=== PATIENT | male | born 1965 | race Hispanic/Latino ===

== ENCOUNTER 2018-09-24 06:39 | Day surgery (SDC) | payer OTHER ==
[2018-09-24] MEDS ORDERED: NITROSTAT SL ONE (06:58)
[2018-09-24] MEDS ORDERED: LOPRESSOR IV ONE (06:58)
[2018-09-24] MEDS ORDERED: ATROPINE 0.1% (CARDIAC) ONE (08:19)
[2018-09-24 08:37] VITALS: BP 120/69
--- NOTE | 2018-09-24 10:08 | Cat Scan Report ---
LIMITED CT OF THE CHEST PER CT CORONARY ANGIOGRAPHY PROTOCOL: History: Abnormal stress test. Limited CT of the chest per CT coronary angiography protocol is submitted. The cardiac portion of the exam has been previously interpreted by the [employer]. The included portions of the lungs appear clear without evidence for suspicious nodule, mass or infiltrate. A 1 cm calcified granuloma is noted in the posterior segment of the right lower lobe. The included pleural spaces are clear. No mediastinal or hilar adenopathy is evident. Included upper abdomen and solid abdominal organs are grossly within normal limits. IMPRESSION: Calcified granuloma in the right lower lobe, otherwise, unremarkable limited CT of the lower chest.
--- NOTE | 2018-09-26 21:37 | CT Calcium Scoring Report ---
Coronary Calcium Score Date of service: 09/26/18 Procedure: High-resolution computed tomographic imaging of the chest was performed on09/24/18 with particular attention paid to the coronary arteries. Images from the examination were analyzed for the presence and extent of coronary artery calcification, using coronary calcium quantification software. The patient tolerated the procedure well and there were no complications. The results of the coronary calcification analysis are provided below. The patient scores are compared with published data related to scores for people of a similar age and the same gender. - Findings Left Anterior Descending Artery: 139.47 Left Circumflex(LCX): 68.35 Right Coronary Artery(RCA): 59.21 Total Agatson Score: 267.03 Percentile Ranking: >75 Findings: Cardiac CTA Indication:chest pain Informed consent obtained Procedure: The patient was brought to the cardiac ct laboratory at [facility] in stable condition after a 4 hour fast. Heart rate was regulated by beta blockade. Sublingual ngt was administered. A coronary calcium score was performed via the Agatston method. Left ventricular function was assessed by the threshold based volumetric segmentation approach. A separate radiology assessment of the non cardiac structures in the field of view will be provided. Superior vena cava in the field of view appears normal Inferior vena cava in the filed of view appears normal Ascending aorta in the field of view appears normal Descending aorta in the field of view appears normal Pulmonary artery in the filed of view appears normal Pulmonary veins enter the left atrium appropriately Left ventricle appears normal Right Ventricle appears normal Left atrium appears normal Left atrial appendage appears normal Right atrium appears normal Interventricular septum appears normal Interatrial septum appears normal Aortic valve appears normal Mitral Valve appears normal Intracardiac mass: none Pericardial effusion: none Coronary Angiography: Dominance: left Origins: normal Left main: normal Left anterior descending coronary artery and diagonal branches: non obstructive calcific and mixed plaque in proximal vessel Circumflex coronary artery and obtuse marginal branches: non obstructive calcific plaque in proximal vessel Right coronary artery: non obstructive calcific plaque in proximal vessel lvef 61% normal wall motion the procedure was tolerated well. there were no procedural complications
== END 2018-09-24 09:00 | disposition home or self-care (01) ==
LOC: CATHLABREC 06:39 → EDSTATUS 07:45 → CATHLABREC 09:00
PROVIDERS: ATTEND Specialist
DX: J84.10 Pulmonary fibrosis, unspecified (principal); R94.39 Abnormal result of other cardiovascular function study; E78.00 Pure hypercholesterolemia, unspecified; I10 Essential (primary) hypertension; Z88.6 Allergy status to analgesic agent; Z79.82 Long term (current) use of aspirin; Z79.899 Other long term (current) drug therapy; Z95.1 Presence of aortocoronary bypass graft; Z82.49 Family history of ischemic heart disease and other diseases of the circulatory system
CPT/HCPCS: 75574; Q9967; J0461